=== PATIENT | male | born 1980 | race Caucasian/White ===

== ENCOUNTER 2016-12-17 13:08 | Outpatient (CLI) | payer BC ==
[~2016-12-17] VITALS: Ht 175.3 cm; Wt 113.6 kg
[~2016-12-17 13:08] MED LIST: AMITRIPTYLINE H25 M1 PO; AZASAN50 MG PO; BETAMETHASONE O15 GM TP; CELEXA 20MG20 MG/TAB PO; COLESTID 1GM1 G PO; CYMBALTA 60MG60 MG PO; FISH OIL1 IU PO; FLAGYL 250250 MG/TAB PO; FLAGYL500 MG PO; IMURAN50 MG PO; LORTAB 7.5/5001 TAB PO; METRONIDAZOLE500 MG PO; NEURONTIN300 MG/CAP PO; NORCO 325 MG-51 TAB PO; NORCO 325 MG-7.1 TAB PO; OTEZLA PO; PAMELOR 25MG25 MG PO; PENTASA500 MG PO; PREDNISONE10 MG PO; PREDNISONE20 MG PO; REMICADE V100 MG/VIA IV; ULTRAM 50MG TAB50 MG PO; ZOLOFT 100MG100 MG PO
[2016-12-17 13:30] LABS: HEMATOCRIT 43.2 % (42.0-52.0); HEMOGLOBIN 15.3 g/dl (13.5-18.0); MEAN CELL VOLUME 86 fl (80.0-100.0); MEAN CORPUSCULAR HEMOGLOBIN 30 pg (27.0-31.0); MEAN CORPUSCULAR HGB CONC 35 g/dl (33.0-37.0); MEAN PLATELET VOLUME 8.3 fl (7.4-10.4); PLATELET COUNT 274 K/mm3 (130-400); RED BLOOD COUNT 5.03 M/mm3 (4.20-5.60); REDCELL DISTRIBUTION WIDTH-CV 12.3 % (11.5-14.5); WHITE BLOOD COUNT 8.2 K/mm3 (4.8-10.8)
[2016-12-17] MEDS ORDERED: PRIL40 PO (13:36)
[2016-12-17 14:00] LABS: ADJUSTED CALCIUM 9.1 mg/dL (8.4-10.2); ALBUMIN 4.4 gm/dL (3.5-5.0); BILIRUBIN,TOTAL 0.9 mg/dL (0.0-1.0); CALCIUM 9.4 mg/dL (8.4-10.2); CREATININE, serum 0.9 mg/dL (0.66-1.25); POTASSIUM 4.1 mmol/L (3.4-5.0); TOTAL PROTEIN 8.1 gm/dL (6.4-8.2)
[2016-12-17 14:30] VITALS: BP 124/83; PULSE 46; TEMP 98.1
[2016-12-17 15:00] VITALS: BP 111/65; PULSE 72
[2016-12-17 15:30] VITALS: BP 112/66; PULSE 65
[2016-12-17 16:00] VITALS: BP 113/66; PULSE 66
[2016-12-17 16:30] VITALS: BP 113/66; PULSE 66
[2016-12-17 16:45] VITALS: BP 116/55; PULSE 64
== END 2016-12-17 18:00 | disposition home or self-care (01) ==
LOC: EUO 13:08
PROVIDERS: Internal Medicine Gastroenterology
DX: K50.90 Crohn's disease, unspecified, without complications (principal)
CPT/HCPCS: J1200; J1745; J2930; J7050

== ENCOUNTER → 2017-01-08 | Outpatient (CLI) | payer BC ==
[~2017-01-08] MED LIST changes: +PRIL40 PO; +ZOFRAN8 MG PO
== END ==
LOC: MHCPAIN 08:58
DX: G89.29 Other chronic pain (principal); M79.2 Neuralgia and neuritis, unspecified; R10.32 Left lower quadrant pain; F17.210 Nicotine dependence, cigarettes, uncomplicated
CPT/HCPCS: G0463

== ENCOUNTER → 2017-01-16 | Outpatient (CLI) | payer BC | LOC: MHCPAIN 09:14 | DX: G89.29 Other chronic pain (principal); R10.9 Unspecified abdominal pain | CPT/HCPCS: J1040 ==

== ENCOUNTER → 2017-02-11 | Outpatient (CLI) | payer BC | LOC: MHCPAIN 09:48 | DX: G89.29 Other chronic pain (principal); R10.9 Unspecified abdominal pain; M79.2 Neuralgia and neuritis, unspecified; R10.2 Pelvic and perineal pain | CPT/HCPCS: G0463 ==

== ENCOUNTER 2017-03-04 08:13 | Outpatient (CLI) | payer BC ==
[~2017-03-04] VITALS: Ht 175.3 cm; Wt 109.0 kg
[~2017-03-04 08:13] MED LIST changes: -ZOFRAN8 MG PO
[2017-03-04 08:45] LABS: HEMATOCRIT 41.4 % (42.0-52.0); HEMOGLOBIN 14.4 g/dl (13.5-18.0); MEAN CELL VOLUME 89 fl (80.0-100.0); MEAN CORPUSCULAR HEMOGLOBIN 31 pg (27.0-31.0); MEAN CORPUSCULAR HGB CONC 35 g/dl (33.0-37.0); MEAN PLATELET VOLUME 8.6 fl (7.4-10.4); PLATELET COUNT 235 K/mm3 (130-400); RED BLOOD COUNT 4.68 M/mm3 (4.20-5.60); REDCELL DISTRIBUTION WIDTH-CV 12.8 % (11.5-14.5); WHITE BLOOD COUNT 7.6 K/mm3 (4.8-10.8)
[2017-03-04 09:10] LABS: ADJUSTED CALCIUM 8.6 mg/dL (8.4-10.2); ALBUMIN 3.9 gm/dL (3.5-5.0); BILIRUBIN,TOTAL 1.1 mg/dL (0.0-1.0); CALCIUM 8.5 mg/dL (8.4-10.2); CREATININE, serum 0.89 mg/dL (0.66-1.25); POTASSIUM 4.1 mmol/L (3.4-5.0); TOTAL PROTEIN 7.2 gm/dL (6.4-8.2)
[2017-03-04 09:55] VITALS: BP 106/75; PULSE 69; TEMP 97.9
[2017-03-04 10:25] VITALS: BP 108/71; PULSE 66; TEMP 97.7
[2017-03-04 10:55] VITALS: BP 99/65; PULSE 65; TEMP 98.1
[2017-03-04 11:25] VITALS: BP 102/66; PULSE 62; TEMP 98.1
[2017-03-04 11:55] VITALS: BP 102/73; PULSE 70; TEMP 98
== END 2017-03-04 12:24 | disposition home or self-care (01) ==
LOC: EUO 08:13
PROVIDERS: Internal Medicine Gastroenterology
DX: K50.00 Crohn's disease of small intestine without complications (principal)
CPT/HCPCS: J1200; J1745; J2930; J7050

== ENCOUNTER → 2017-03-06 | Outpatient (CLI) | payer BC ==
[~2017-03-06] MED LIST changes: +ZOFRAN8 MG PO
== END ==
LOC: MHCPAIN 13:16
DX: G89.29 Other chronic pain (principal); R10.2 Pelvic and perineal pain
CPT/HCPCS: J1100; Q9967

== ENCOUNTER → 2017-03-21 | Outpatient (CLI) | payer BC | LOC: MHCPAIN 08:27 | DX: G89.29 Other chronic pain (principal); R10.9 Unspecified abdominal pain; R10.2 Pelvic and perineal pain; F17.210 Nicotine dependence, cigarettes, uncomplicated | CPT/HCPCS: G0463 ==

== ENCOUNTER → 2017-05-06 | Outpatient (CLI) | payer BC | LOC: MHCPAIN 09:25 | DX: G89.29 Other chronic pain (principal); R10.2 Pelvic and perineal pain; M79.2 Neuralgia and neuritis, unspecified; F17.210 Nicotine dependence, cigarettes, uncomplicated | CPT/HCPCS: G0463 ==

== ENCOUNTER 2017-05-21 15:25 | Emergency (ER) | payer BC ==
[~2017-05-21] VITALS: Ht 175.3 cm; Wt 110.9 kg
[~2017-05-21 15:25] MED LIST changes: -ZOFRAN8 MG PO
[2017-05-21 15:30] VITALS: BP 154/94; TEMP 98.4
[2017-05-21] MEDS ORDERED: PREDNISONE20 MG PO (16:23)
[2017-05-21] MEDS ORDERED: ZOFRAN8 MG PO (16:23)
[2017-05-21] MEDS ORDERED: NORCO 325 MG-51 TAB PO (16:23)
[2017-05-21 16:55] LABS: BASO # 0.1 (0.0-0.2); BASO % 0.5 % (0.0-2.0); EOS # 0.1 (0.0-0.7); EOS % 0.6 % (0-4.0); GRAN # 7.6 (1.4-6.5); GRAN % 72.7 % (42.2-75.2); HEMOGLOBIN 15.4 g/dl (13.5-18.0); LYMPH # 2.2 (1.2-3.4); LYMPH % 21.5 % (20.0-51.0); MEAN CELL VOLUME 88 fl (80.0-100.0); MEAN CORPUSCULAR HEMOGLOBIN 31 pg (27.0-31.0); MEAN CORPUSCULAR HGB CONC 35 g/dl (33.0-37.0); MEAN PLATELET VOLUME 8.7 fl (7.4-10.4); MONO # 0.5 (0.1-0.6); MONO % 4.4 % (1.7-9.3); PLATELET COUNT 261 K/mm3 (130-400); RED BLOOD COUNT 5.01 M/mm3 (4.20-5.60); REDCELL DISTRIBUTION WIDTH-CV 12.4 % (11.5-14.5); WHITE BLOOD COUNT 10.4 K/mm3 (4.8-10.8)
[2017-05-21 17:05] LABS: ALANINE AMINOTRANSFERASE 45 U/L (21-72); ALBUMIN 4.7 gm/dL (3.5-5.0); ALKALINE PHOSPHATASE 64 U/L (50-136); ANION GAP 12 mmol/L (7-16); BILIRUBIN,TOTAL 1.3 mg/dL (0.0-1.0); BLOOD UREA NITROGEN 12 mg/dL (9-20); CALCIUM 9.6 mg/dL (8.4-10.2); CARBON DIOXIDE 22 mmol/L (22-30); CHLORIDE 105 mmol/L (98-107); CREATININE, serum 0.85 mg/dL (0.66-1.25); GLUCOSE 96 mg/dL (74-106); POTASSIUM 4.1 mmol/L (3.4-5.0); SODIUM 140 mmol/L (137-145); TOTAL PROTEIN 8.2 gm/dL (6.4-8.2)
[2017-05-21 17:10] LABS: C-REACTIVE PROTEIN < 0.5 mg/dL (0.0-0.9)
[2017-05-21 17:12] LABS: PH 5 (5-8); SQUAMOUS EPITHELIAL None Seen /hpf; URINE APPEARANCE Clear; URINE BACTERIA None Seen /hpf; URINE BILIRUBIN Negative (NEGATIVE); URINE BLOOD Negative (NEGATIVE); URINE COLOR Yellow; URINE GLUCOSE Negative (NEGATIVE); URINE KETONE Negative (NEGATIVE); URINE RBC 0-2 /hpf; URINE UROBILINOGEN Negative (NEGATIVE); URINE WBC 0-2 /hpf
[2017-05-21 17:21] LABS: ERYTHROCYTE SEDIMENTATION RATE 1 mm/hr (0-15)
[2017-05-21 17:31] VITALS: PULSE 58
== END 2017-05-21 17:38 | disposition home or self-care (01) ==
LOC: COL.ER 15:25
PROVIDERS: Emergency Medicine
DX: R10.31 Right lower quadrant pain (principal); R10.32 Left lower quadrant pain; R11.2 Nausea with vomiting, unspecified; R19.7 Diarrhea, unspecified; K50.90 Crohn's disease, unspecified, without complications; K21.9 Gastro-esophageal reflux disease without esophagitis
CPT/HCPCS: J1170; J1885; J2405; J2930; J7030

== ENCOUNTER → 2017-05-23 | Outpatient (CLI) | payer BC ==
[~2017-05-23] MED LIST changes: +ZOFRAN8 MG PO
== END ==
LOC: MHCPAIN 09:00
DX: G89.29 Other chronic pain (principal); M79.2 Neuralgia and neuritis, unspecified; M79.1 Myalgia; R10.2 Pelvic and perineal pain
CPT/HCPCS: G0463

== ENCOUNTER 2017-06-25 10:15 | Outpatient (CLI) | payer BC ==
[~2017-06-25] VITALS: Ht 175.3 cm; Wt 110.0 kg
[2017-06-25 10:49] LABS: HEMATOCRIT 43.3 % (42.0-52.0); HEMOGLOBIN 14.7 g/dl (13.5-18.0); MEAN CELL VOLUME 90 fl (80.0-100.0); MEAN CORPUSCULAR HEMOGLOBIN 31 pg (27.0-31.0); MEAN CORPUSCULAR HGB CONC 34 g/dl (33.0-37.0); MEAN PLATELET VOLUME 10.5 fl (7.4-10.4); PLATELET COUNT 206 K/mm3 (130-400); RED BLOOD COUNT 4.82 M/mm3 (4.20-5.60); REDCELL DISTRIBUTION WIDTH-CV 12.9 % (11.5-14.5)
[2017-06-25 12:06] VITALS: BP 112/69; PULSE 52; TEMP 98.3
[2017-06-25 12:48] VITALS: BP 107/56; PULSE 53; TEMP 98.1
[2017-06-25 12:55] LABS: ADJUSTED CALCIUM 8.6 mg/dL (8.4-10.2); BILIRUBIN,TOTAL 0.8 mg/dL (0.0-1.0); CALCIUM 8.6 mg/dL (8.4-10.2); POTASSIUM 5.5 mmol/L (3.4-5.0); TOTAL PROTEIN 7.4 gm/dL (6.4-8.2)
[2017-06-25 13:35] VITALS: BP 94/52; PULSE 53; TEMP 98.2
[2017-06-25 14:15] VITALS: BP 125/104; PULSE 61; TEMP 97.9
== END 2017-06-25 14:29 | disposition home or self-care (01) ==
LOC: EUO 10:15
PROVIDERS: Internal Medicine Gastroenterology; Physician Assistant
DX: K50.90 Crohn's disease, unspecified, without complications (principal); Z79.899 Other long term (current) drug therapy
CPT/HCPCS: J1200; J2930; J7050; Q5102-ZB

== ENCOUNTER 2017-10-23 14:42 | Emergency (ER) | payer OTHER ==
[~2017-10-23] VITALS: Ht 172.7 cm; Wt 104.5 kg
[2017-10-23 14:45] VITALS: BP 148/90; TEMP 98.8
[2017-10-23] MEDS ORDERED: PERCOCET 325 MG1 TA2 PO (14:50)
[2017-10-23 16:10] VITALS: PULSE 68
== END 2017-10-23 16:10 | disposition home or self-care (01) ==
LOC: COL.ER 14:42
DX: R10.9 Unspecified abdominal pain (principal); G89.29 Other chronic pain; K50.90 Crohn's disease, unspecified, without complications

== ENCOUNTER 2018-05-19 13:22 | Emergency (ER) | payer BC ==
[~2018-05-19] VITALS: Ht 175.3 cm; Wt 107.7 kg
[~2018-05-19 13:22] MED LIST changes: +PERCOCET 325 MG1 TA2 PO
[2018-05-19 13:33] VITALS: BP 133/86; TEMP 98.8
[2018-05-19] MEDS ORDERED: ZOHYDRO PO ×2 (14:13→16:30)
[2018-05-19 14:26] LABS: BASO % 0.3 % (0.0-2.0); EOS # 0.1 (0.0-0.7); EOS % 0.8 % (0-4.0); GRAN % 74.9 % (42.2-75.2); HEMATOCRIT 41.5 % (42.0-52.0); HEMOGLOBIN 14.5 g/dl (13.5-18.0); LYMPH # 2.1 (1.2-3.4); LYMPH % 19.7 % (20.0-51.0); MEAN CELL VOLUME 85 fl (80.0-100.0); MEAN CORPUSCULAR HEMOGLOBIN 30 pg (27.0-31.0); MEAN CORPUSCULAR HGB CONC 35 g/dl (33.0-37.0); MEAN PLATELET VOLUME 8.5 fl (7.4-10.4); MONO # 0.4 (0.1-0.6); MONO % 3.9 % (1.7-9.3); PLATELET COUNT 319 K/mm3 (130-400); RED BLOOD COUNT 4.87 M/mm3 (4.20-5.60); REDCELL DISTRIBUTION WIDTH-CV 12.5 % (11.5-14.5)
[2018-05-19 14:39] LABS: ALANINE AMINOTRANSFERASE 31 U/L (21-72); ALKALINE PHOSPHATASE 54 U/L (50-136); ANION GAP 11 mmol/L (7-16); AST,SGOT 19 U/L (15-37); BILIRUBIN,TOTAL 1.1 mg/dL (0.0-1.0); BLOOD UREA NITROGEN 13 mg/dL (9-20); CALCIUM 8.9 mg/dL (8.4-10.2); CARBON DIOXIDE 22 mmol/L (22-30); CHLORIDE 106 mmol/L (98-107); CREATININE, serum 0.94 mg/dL (0.66-1.25); GLUCOSE 90 mg/dL (74-106); LIPASE 68 U/L (23-300); POTASSIUM 3.7 mmol/L (3.4-5.0); SODIUM 139 mmol/L (137-145); TOTAL PROTEIN 7.3 gm/dL (6.4-8.2)
[2018-05-19 14:43] LABS: C-REACTIVE PROTEIN < 0.5 mg/dL (0.0-0.9)
[2018-05-19] MEDS ORDERED: NORCO 325 MG-51 TAB PO (16:27)
[2018-05-19 16:36] LABS: COLLECTION METHOD CLEAN CATCH
[2018-05-19 16:42] VITALS: PULSE 65
[2018-05-19 16:45] LABS: MUCOUS Present /lpf; PH 7 (5-8); SQUAMOUS EPITHELIAL None Seen /hpf; URINE APPEARANCE Clear; URINE BACTERIA None Seen /hpf; URINE BILIRUBIN Negative (NEGATIVE); URINE BLOOD Negative (NEGATIVE); URINE COLOR Straw; URINE GLUCOSE Negative (NEGATIVE); URINE KETONE Negative (NEGATIVE); URINE LEUKOCYTE ESTERASE Negative (NEGATIVE); URINE NITRATE Negative (NEGATIVE); URINE PROTEIN(semi-quant) Negative (NEGATIVE); URINE RBC 0-2 /hpf; URINE UROBILINOGEN Negative (NEGATIVE)
== END 2018-05-19 16:44 | disposition home or self-care (01) ==
LOC: COL.ER 13:22
PROVIDERS: Emergency Medicine
DX: R10.84 Generalized abdominal pain (principal); K50.90 Crohn's disease, unspecified, without complications; G89.29 Other chronic pain; F17.210 Nicotine dependence, cigarettes, uncomplicated; Z90.49 Acquired absence of other specified parts of digestive tract
CPT/HCPCS: J2270; J2405; J7030; Q9967

== ENCOUNTER 2019-05-16 19:20 | Emergency (ER) | payer BC ==
[~2019-05-16] VITALS: Ht 175.3 cm; Wt 106.8 kg
[~2019-05-16 19:20] MED LIST changes: +ZOHYDRO PO
[2019-05-16 19:31] VITALS: BP 134/85; TEMP 98.3
[2019-05-16 20:17] LABS: BASO # 0.1 (0.0-0.2); BASO % 0.5 % (0.0-2.0); EOS # 0.1 (0.0-0.7); EOS % 1.3 % (0-4.0); GRAN # 4.8 (1.4-6.5); GRAN % 53.2 % (42.2-75.2); HEMATOCRIT 42.1 % (42.0-52.0); HEMOGLOBIN 14.5 g/dl (13.5-18.0); LYMPH # 3.5 (1.2-3.4); MEAN CELL VOLUME 88 fl (80.0-100.0); MEAN CORPUSCULAR HEMOGLOBIN 30 pg (27.0-31.0); MEAN CORPUSCULAR HGB CONC 34 g/dl (33.0-37.0); MEAN PLATELET VOLUME 8.5 fl (7.4-10.4); MONO # 0.6 (0.1-0.6); MONO % 6.7 % (1.7-9.3); PLATELET COUNT 269 K/mm3 (130-400); RED BLOOD COUNT 4.81 M/mm3 (4.20-5.60); REDCELL DISTRIBUTION WIDTH-CV 12.5 % (11.5-14.5)
[2019-05-16] MEDS ORDERED: ZOHYDRO ER50 MG PO (20:23)
[2019-05-16] MEDS ORDERED: PERCOCET 325 MG1 TAB PO (20:24)
[2019-05-16 20:30] LABS: ALANINE AMINOTRANSFERASE 23 U/L (21-72); ALKALINE PHOSPHATASE 84 U/L (50-136); ANION GAP 9 mmol/L (7-16); AST,SGOT 22 U/L (15-37); BILIRUBIN,TOTAL 0.3 mg/dL (0.0-1.0); BLOOD UREA NITROGEN 18 mg/dL (9-20); CALCIUM 9.3 mg/dL (8.4-10.2); CARBON DIOXIDE 25 mmol/L (22-30); CHLORIDE 106 mmol/L (98-107); CREATININE, serum 0.87 (0.66-1.25); GLUCOSE 99 mg/dL (74-106); POTASSIUM 3.8 mmol/L (3.4-5.0); SODIUM 141 mmol/L (137-145); TOTAL PROTEIN 7.2 gm/dL (6.4-8.2)
[2019-05-16 20:36] LABS: C-REACTIVE PROTEIN < 0.5 mg/dL (0.0-0.9)
[2019-05-16 20:52] LABS: COLLECTION METHOD CLEAN CATCH
[2019-05-16 21:06] LABS: MUCOUS Present /lpf; PH 5 (5-8); SQUAMOUS EPITHELIAL None Seen /hpf; URINE APPEARANCE Clear; URINE BACTERIA None Seen /hpf; URINE BILIRUBIN Negative (NEGATIVE); URINE BLOOD Negative (NEGATIVE); URINE COLOR Yellow; URINE GLUCOSE Negative (NEGATIVE); URINE KETONE Negative (NEGATIVE); URINE LEUKOCYTE ESTERASE Negative (NEGATIVE); URINE NITRATE Negative (NEGATIVE); URINE PROTEIN(semi-quant) Negative (NEGATIVE); URINE RBC 0-2 /hpf; URINE UROBILINOGEN Negative (NEGATIVE)
[2019-05-16 21:50] VITALS: PULSE 81
== END 2019-05-16 21:59 | disposition home or self-care (01) ==
LOC: COL.ER 19:20
PROVIDERS: Physician Assistant
DX: G89.29 Other chronic pain (principal); R10.30 Lower abdominal pain, unspecified; K50.90 Crohn's disease, unspecified, without complications
CPT/HCPCS: J1885; J2405; J7030

== ENCOUNTER 2020-04-14 06:47 | Day surgery (SDC) | payer BC ==
[~2020-04-14] VITALS: Ht 175.3 cm; Wt 111.0 kg
[~2020-04-14 06:47] MED LIST changes: +PERCOCET 325 MG1 TAB PO; +ZOHYDRO ER50 MG PO
[2020-04-14] MEDS ORDERED: STRATTERA80 MG PO (07:18)
[2020-04-14 07:26] VITALS: BP 127/77; PULSE 67; TEMP 97.4
[2020-04-14 08:25] VITALS: BP 106/72; PULSE 61; TEMP 97.5
--- NOTE | 2020-04-14 08:25 | NUR ---
The patient was brought back to via cart from the enoscopy suite to [facility] at this time. The patient ambulated from the cart to the recliner in his room with the stand by assistance of one nurse and appeared to tolerate the activity well. The patient has some water at his bedside that he brought from home that he is going to sip on but denies wanting anything further to eat or drink. Call light is within reach. Will continue to monitor the patient.
--- NOTE | 2020-04-14 08:40 | NUR ---
The patient is sitting up in the recliner and appears to be resting comfortably at this time. The patient appears to be tolerating the water well and denies wanting anything further to eat or drink at this time. The patient is waiting to speak with doctor prior to discharge.
[2020-04-14 08:42] VITALS: BP 109/69; PULSE 57
[2020-04-14 08:55] VITALS: BP 109/75; PULSE 63
--- NOTE | 2020-04-14 08:55 | NUR ---
Dr. Austin has spoke with the patient regarding the findings of the procedure. Discharge instructions were reviewed at this time and he verbalized understanding and has no questions for the nurse. The patient's IV to his right wrist was removed and a pressure dressing was applied to the site. The nurse instructed the patient to get dressed and notify the staff when he is ready to be escorted out.
--- NOTE | 2020-04-14 09:15 | NUR ---
The patient was escorted out via wheelchair to a private vehicle by ANKUR Schmidt. The patient's belongings and discharge paperwork were sent with him. The patient's friend, Liliane, is present to drive him home.
== END 2020-04-14 09:15 | disposition home or self-care (01) ==
LOC: SDCO 06:47
DX: Z12.11 Encounter for screening for malignant neoplasm of colon (principal); K52.89 Other specified noninfective gastroenteritis and colitis; K92.1 Melena; K21.9 Gastro-esophageal reflux disease without esophagitis; J32.9 Chronic sinusitis, unspecified; Z90.49 Acquired absence of other specified parts of digestive tract; Z87.891 Personal history of nicotine dependence; F32.9 Major depressive disorder, single episode, unspecified; F90.9 Attention-deficit hyperactivity disorder, unspecified type; G89.29 Other chronic pain; R10.9 Unspecified abdominal pain
CPT/HCPCS: J2704; J7030